=== PATIENT | female | born 1945 | race Caucasian/White ===

== ENCOUNTER 2018-09-26 12:06 | Outpatient (CLI) | payer MEDICARE ==
[2018-09-26 12:50] LABS: Bilirubin Negative (Negative); Blood, Urine Trace (Negative); Glucose, Urine (Dipstick) Negative (Negative); Leukocyte Small (Negative); Nitrite Positive (Negative); Protein, Urine (Dipstick) Negative (Neg-Trace); Urobilinogen 0.2 mg/dL (Less than 2)
[2018-09-26 13:00] LABS: Bacteria/HPF 2+ HPF (None Seen); Clarity Hazy (Clear); RBC/HPF 0-3 HPF (0-3); Squamous Epithelial 0-3 HPF (0-3)
== END 2018-09-26 12:07 | disposition home or self-care (01) ==
LOC: MADLABBHPM 12:06
PROVIDERS: ATTEND Family Medicine
DX: M54.5 Low back pain (principal)
CPT/HCPCS: 81001; 87077; 87086; 87186

== ENCOUNTER 2019-03-12 15:59 | Emergency (ER) | payer MEDICARE ==
--- NOTE | 2019-03-12 16:59 | RAD ---
LEFT ANKLE THREE VIEWS: 03/12/19 HISTORY: Injury, left ankle. FINDINGS/IMPRESSION: There are postop changes of internal fixation of a trimalleolar fracture noted on 08/20/14. Fractures have healed in the interim. No acute fracture or dislocation is seen. The ankle mortise is maintained. Metallic hardware is intact. POS: [facility]
== END 2019-03-12 17:11 | disposition home or self-care (01) ==
LOC: MADERS 15:59
DX: S93.402A Sprain of unspecified ligament of left ankle, initial encounter (principal); E03.9 Hypothyroidism, unspecified; Z79.899 Other long term (current) drug therapy; W01.0XXA Fall on same level from slipping, tripping and stumbling without subsequent striking against object, initial encounter

== ENCOUNTER 2020-06-21 09:47 | Outpatient (CLI) | payer MEDICARE | END 2020-06-21 09:48 | disposition home or self-care (01) | LOC: MADRAD 09:47 | PROVIDERS: ATTEND Family Medicine | DX: M54.5 Low back pain (principal); M47.816 Spondylosis without myelopathy or radiculopathy, lumbar region | CPT/HCPCS: 72100 ==